=== PATIENT | male | born 1975 | race Caucasian/White ===

== ENCOUNTER 2024-05-28 08:58 | Emergency (ER) | payer BC, OTHER ==
[2024-05-28] MEDS ORDERED: KETOROLAC 30 MG/ML INJ ONE (09:19)
--- NOTE | 2024-05-28 09:56 | RAD REPORT ---
EXAMINATION: Lumbar Spine 3 Views CLINICAL INDICATION: Back pain FINDINGS: No fracture or dislocation seen. No significant bone or joint abnormality noted.
--- NOTE | 2024-05-28 11:33 | ER ---
Nurse's Notes [facility] Name: Quintin Miranda Age: 49 yrs Sex: Male : 1975 Arrival Date: 05/28/2024 Time: 08:58 Bed DX3 Private MD: Diagnosis: Muscle strain lumbar Presentation: 05/28 09:17 Chief complaint: Patient states: L low back pain that radiates down L leg that began ss yesterday after exercising. Coronavirus screen: Client denies travel out of the [place] in the last 14 days. Ebola Screen: Patient denies exposure to infectious person. Patient denies travel to an Ebola-affected area in the 21 days before illness onset. Initial Sepsis Screen: Does the patient meet any 2 criteria? No. Patient's initial sepsis screen is negative. Does the patient have a suspected source of infection? No. Patient's initial sepsis screen is negative. Risk Assessment: Do you want to hurt yourself or someone else? Patient reports no desire to harm self or others. Onset of symptoms was May 27, 2024. 09:17 Method Of Arrival: Ambulatory ss 09:17 Acuity: DALE 4 ss Triage Assessment: 09:30 General: Appears in no apparent distress. uncomfortable, Behavior is calm, cooperative, bp appropriate for age. Pain: Complains of pain in back. EENT: No deficits noted. Neuro: No deficits noted. Cardiovascular: No deficits noted. Respiratory: No deficits noted. GI: No signs and/or symptoms were reported involving the gastrointestinal system. : No signs and/or symptoms were reported regarding the genitourinary system. Derm: No deficits noted. Musculoskeletal: Circulation, motion, and sensation intact. Range of motion: intact in all extremities. Historical: - Allergies: 09:18 Iodine; ss - Home Meds: 09:18 TRT [Active]; ss - PMHx: 09:18 None; ss - PSHx: 09:18 None; ss - Immunization history:: Client reports having NOT received the Covid vaccine. - Infectious Disease History:: Denies. - Social history:: Smoking status: . Screenin:27 [facility] ED Fall Risk Assessment (Adult) History of falling in the last 3 months, ss including since admission No falls in past 3 months (0 pts) Confusion or Disorientation No (0 pts) Intoxicated or Sedated No (0 pts) Impaired Gait No (0 pts) Mobility Assist Device Used No (0 pt) Altered Elimination No (0 pt) Score/Fall Risk Level 0 - 2 = Low Risk Oriented to surroundings. Abuse screen: Denies threats or abuse. Denies injuries from another. Nutritional screening: No deficits noted. Tuberculosis screening: Never had TB. Assessment: 09:27 General: Appears uncomfortable, Behavior is calm, cooperative, Denies fever, feeling ss ill. Pain: Complains of pain in L low back Pain radiates to left leg Pain currently is 7 out of 10 on a pain scale. Is continuous. Neuro: Level of Consciousness is awake, alert, obeys commands, Oriented to person, place, time, situation. Respiratory: Airway is patent Respiratory effort is even, unlabored, Respiratory pattern is regular, symmetrical. Derm: Skin is intact, is healthy with good turgor, Skin is pink, warm \T\ dry. normal. Vital Signs: 09:15 BP 121 / 91; Pulse 71; Resp 14; Temp 98.4(O); Pulse Ox 100% ; Weight 88.45 kg; Height 6 ss ft. 0 in. ; Pain 4/10; 11:39 BP 127 / 85; Pulse 75; Resp 16; Pulse Ox 99% ; bp 09:15 Body Mass Index 26.45 (88.45 kg, 182.88 cm) ss 09:15 Pain Scale: Adult ss ED Course: 09:02 Patient arrived in ED. mg5 09:03 Kale Martinez MD is Attending Physician. sp3 09:18 Triage completed. ss 09:18 Arm band placed on right wrist. ss 09:27 Patient has correct armband on for positive identification. ss 09:45 Patient moved to radiology ambulatory. md2 09:52 Lumbar Spine 3 Views In Process Unspecified. EDMS 11:38 Mohamud Marte, RN is Primary Nurse. bp 11:39 No provider procedures requiring assistance completed. Patient did not have IV access bp during this emergency room visit. Administered Medications: 09:26 Drug: Ketorolac IM 30 mg IM once Route: IM; Site: right deltoid; ss 11:38 Follow up: Response: No adverse reaction bp Medication: 09:27 VIS not applicable for this client. ss Outcome: 11:32 Discharge ordered by . sp3 11:39 Discharged to home ambulatory, bp 11:39 Condition: stable 11:39 Discharge instructions given to patient, Instructed on discharge instructions, follow up and referral plans. medication usage, Demonstrated understanding of instructions, follow-up care, medications, Prescriptions given X 2, 11:40 Patient left the ED. bp Signatures: Dispatcher [employer] EDMS Ashli Mcdonald RN RN ss Mohamud Marte RN RN bp Kale Martinez MD MD sp3 Oxana Hall md2 Ciarra Solorzano mg5
--- NOTE | 2024-05-28 11:33 | EDPHYS ---
Physician Documentation [facility] Name: Quintin Miranda Age: 49 yrs Sex: Male : 1975 Arrival Date: 05/28/2024 Time: 08:58 Bed DX3 Private MD: ED Physician Kale Martinez HPI: 05/28 11:30 This 49 yrs old Male presents to ER via Ambulatory with complaints of Back Pain. sp3 11:30 49-year-old male with no past medical history presents with left sided low back pain sp3 after calisthenics exercise. Brief symptom of pain shooting into the leg but mainly it is in the muscular region. He denies any anterior abdominal pain, upper back pain, right sided back pain, any other neurological complaints. Review of system negative for fever, headache, URI symptoms, chest pain, shortness of breath, continued extremity pain, loss of bowel or bladder function or any other signs or symptoms on ROS at this time.. Historical: - Allergies: 09:18 Iodine; ss - Home Meds: 09:18 TRT [Active]; ss - PMHx: 09:18 None; ss - PSHx: 09:18 None; ss - Immunization history:: Client reports having NOT received the Covid vaccine. - Infectious Disease History:: Denies. - Social history:: Smoking status: . ROS: 11:30 Constitutional: Negative for fever, chills, and weight loss, Eyes: Negative for injury, sp3 pain, redness, and discharge, ENT: Negative for injury, pain, and discharge, Neck: Negative for injury, pain, and swelling, Cardiovascular: Negative for chest pain, palpitations, and edema, Respiratory: Negative for shortness of breath, cough, wheezing, and pleuritic chest pain, Abdomen/GI: Negative for abdominal pain, nausea, vomiting, diarrhea, and constipation, MS/Extremity: Negative for injury and deformity, Skin: Negative for injury, rash, and discoloration, Neuro: Negative for headache, weakness, numbness, tingling, and seizure, Psych: Negative for depression, anxiety, suicide ideation, homicidal ideation, and hallucinations, Allergy/Immunology: Negative for hives, rash, and allergies, Endocrine: Negative for neck swelling, polydipsia, polyuria, polyphagia, and marked weight changes, Hematologic/Lymphatic: Negative for swollen nodes, abnormal bleeding, and unusual bruising, 11:30 All other systems are negative, Exam: 11:31 Constitutional: This is a well developed, well nourished patient who is awake, alert, sp3 and in no acute distress. Head/Face: Normocephalic, atraumatic. Eyes: Pupils equal round and reactive to light, extra-ocular motions intact. Lids and lashes normal. Conjunctiva and sclera are non-icteric and not injected. Cornea within normal limits. Periorbital areas with no swelling, redness, or edema. Neck: Trachea midline, no thyromegaly or masses palpated, and no cervical lymphadenopathy. Supple, full range of motion without nuchal rigidity, or vertebral point tenderness. No Meningismus. Chest/axilla: Normal chest wall appearance and motion. Nontender with no deformity. No lesions are appreciated. Cardiovascular: Regular rate and rhythm with a normal S1 and S2. No gallops, murmurs, or rubs. Normal PMI, no JVD. No pulse deficits. Respiratory: Lungs have equal breath sounds bilaterally, clear to auscultation and percussion. No rales, rhonchi or wheezes noted. No increased work of breathing, no retractions or nasal flaring. Abdomen/GI: Soft, non-tender, with normal bowel sounds. No distension or tympany. No guarding or rebound. No evidence of tenderness throughout. Skin: Warm, dry with normal turgor. Normal color with no rashes, no lesions, and no evidence of cellulitis. MS/ Extremity: Pulses equal, no cyanosis. Neurovascular intact. Full, normal range of motion. Neuro: Awake and alert, GCS 15, oriented to person, place, time, and situation. Cranial nerves II-XII grossly intact. Motor strength 5/5 in all extremities. Sensory grossly intact. Cerebellar exam normal. Normal gait. 11:31 Back: Pain to palpation the musculature in the left lower back., Vital Signs: 09:15 BP 121 / 91; Pulse 71; Resp 14; Temp 98.4(O); Pulse Ox 100% ; Weight 88.45 kg; Height 6 ss ft. 0 in. ; Pain 4/10; 11:39 BP 127 / 85; Pulse 75; Resp 16; Pulse Ox 99% ; bp 09:15 Body Mass Index 26.45 (88.45 kg, 182.88 cm) ss 09:15 Pain Scale: Adult ss MDM: 09:17 Medical Screening Exam initiated sp3 11:31 Data reviewed: vital signs, nurses notes, radiologic studies. ED course: Muscular sp3 strain versus radiculopathy versus disc disease versus sciatica. Patient improved with ketorolac. Lumbar x-rays are negative. Have advised patient to take p.o. NSAID diclofenac and muscle relaxer Flexeril follow-up with PCP with outpatient MRI if needed.. 05/28 09:36 Order name: Lumbar Spine 3 Views; Complete Time: 11:20 EDMS Administered Medications: 09:26 Drug: Ketorolac IM 30 mg IM once Route: IM; Site: right deltoid; 11:38 Follow up: Response: No adverse reaction bp Disposition Summary: 05/28/24 11:32 Discharge Ordered Notes: Location: Home sp3 Condition: Stable sp3 Diagnosis - Muscle strain lumbar sp3 Followup: sp3 - With: Private Physician - When: Upon discharge from the Emergency Department - Reason: Continuance of care Discharge Instructions: - Discharge Summary Sheet sp3 - Muscle Strain sp3 Forms: - Medication Reconciliation Form sp3 - Antibiotic Education sp3 - Prescription Opioid Use sp3 - Patient Portal Instructions sp3 - Leadership Thank You Letter sp3 - Work release form kb3 Prescriptions: - Diclofenac Sodium 75 mg Oral Tablet Sustained Release - take 1 tablet ORAL route 2 times per day; 30 tablet; Refills: 0, Product sp3 Selection Permitted - Cyclobenzaprine 5 mg Oral Tablet - take 1 tablet ORAL route 3 times per day As needed; 15 tablet; Refills: 0, sp3 Product Selection Permitted Signatures: Dispatcher [employer] EDMS Ashli Mcdonald RN RN Kale Martinez MD MD sp3 Mohamud Marte RN bp Corrections: (The following items were deleted from the chart) 10:53 10:53 Lumbar Spine 3 Views+[email or web address] ordered. EDMS EDMS
[2024-05-28 11:44] VITALS: TEMP 98.4
[2024-05-28 11:45] VITALS: BP 127/85; O2SAT 99
== END 2024-05-28 11:40 | disposition home or self-care (01) ==
LOC: ER 08:58
DX: S39.012A Strain of muscle, fascia and tendon of lower back, initial encounter (principal)
CPT/HCPCS: 72100